=== PATIENT | female | born 2000 | race Caucasian/White ===

== ENCOUNTER 2019-07-23 19:19 | Emergency (ER) | payer SELFPAY ==
[~2019-07-23] VITALS: Ht 172.7 cm; Wt 83.0 kg
[2019-07-23 19:59] VITALS: Ht 172.7 cm; Wt 83.0 kg
[2019-07-24 00:38] VITALS: BP 120/57
== END 2019-07-24 00:38 | disposition home or self-care (01) ==
LOC: ED 19:19
DX: L05.01 Pilonidal cyst with abscess (principal)
CPT/HCPCS: J2001

== ENCOUNTER 2019-07-26 01:18 | Emergency (ER) | payer MEDICAID ==
[~2019-07-26] VITALS: Ht 172.7 cm; Wt 85.3 kg
[2019-07-26 01:23] VITALS: Ht 172.7 cm; Wt 85.3 kg
[2019-07-26 03:40] VITALS: BP 116/64
== END 2019-07-26 03:40 | disposition home or self-care (01) ==
LOC: ED 01:18
DX: L05.91 Pilonidal cyst without abscess (principal)

== ENCOUNTER 2019-12-26 18:00 | Emergency (ER) | payer SELFPAY ==
[~2019-12-26] VITALS: Ht 172.7 cm; Wt 81.6 kg
[2019-12-26 18:08] VITALS: BP 147/79; Ht 172.7 cm; Wt 81.6 kg
== END 2019-12-26 19:50 | disposition home or self-care (01) ==
LOC: ED 18:00
DX: M54.31 Sciatica, right side (principal)
CPT/HCPCS: J1885